=== PATIENT | female | born 1990 | race Two or more races ===

== ENCOUNTER 2021-09-04 12:41 | Emergency (ER) | payer MEDICAID, OTHER ==
[~2021-09-04] VITALS: Ht 167.6 cm; Wt 81.6 kg
[2021-09-04] MEDS ORDERED: LIDOCAINE 1% (LOCAL ANESTH.) PF 5ml SDV ID ONE (13:00)
[2021-09-04 15:34] VITALS: BP 133/82
[2021-09-04] MEDS ORDERED: HYDROcodone-ACET 10/325MG TAB PO ONE (15:45)
[2021-09-04] MEDS ORDERED: HYDR-4902 PO (15:57)
== END 2021-09-04 16:51 | disposition home or self-care (01) ==
LOC: EDBD 12:41 → ER 12:41
DX: S21.112A Laceration without foreign body of left front wall of thorax without penetration into thoracic cavity, initial encounter (principal); S50.812A Abrasion of left forearm, initial encounter; F17.210 Nicotine dependence, cigarettes, uncomplicated; F12.10 Cannabis abuse, uncomplicated; Y04.2XXA Assault by strike against or bumped into by another person, initial encounter; Y93.89 Activity, other specified; Y92.89 Other specified places as the place of occurrence of the external cause; Y99.8 Other external cause status
CPT/HCPCS: 12002; 71045; 93005